=== PATIENT | male | born 1955 | race Caucasian/White ===

== ENCOUNTER 2017-09-02 14:59 | Observation (INO) ==
[2017-09-02] MEDS ORDERED: Orphenadrine 60 MG/2 ML VIAL IVP ONE (16:06)
[2017-09-02] MEDS ORDERED: Ondansetron 4 MG/2 ML VIAL IVP ONE (16:06)
[2017-09-02] MEDS ORDERED: methylPREDNISolone 125 MG/2 ML VIAL IVP ONE (16:06)
[2017-09-02] MEDS ORDERED: 0.9 % Sodium Chloride 1,000 ML IVC ONE (16:06)
--- NOTE | 2017-09-02 16:06 | Emergency Department Note ---
Disposition Clinical Impression: Unable to ambulate Lumbar strain Qualifiers: Encounter type: subsequent encounter Qualified Code(s): S39.012D - Strain of muscle, fascia and tendon of lower back, subsequent encounter Disposition: Admitted As Inpatient Condition: Good Back Pain HPI - General Chief Complaint: ED Back Pain/Injury Stated Complaint: Low back pain Time Seen by Provider: 09/02/17 15:02 Source: EMS Mode of arrival: EMS Limitations: physical limitation Nursing Notes Reviewed: Yes Vital Signs Reviewed: Yes - History of Present Illness HPI Narrative: 62-year-old male history of cerebral palsy, ambulation with crutches who presents to the ER due to back pain. Reports that a few days ago he was standing up and developed pain in his right lower back. He did not fall or strike anything. He was seen here on the where he had imaging performed and was sent home with narcotics. He has also been using topical lidocaine. Reports persistent pain. States that the pain medication makes him sick. Home health was concerned because he has not been eating and drinking as well. He denies any radicular symptoms. No bowel or bladder incontinence. No fevers. No other complaints. Pt Subjective Complaint: back pain Onset (ago): day(s) Duration: constant Location: lumbar spine Pain Severity: moderate Radiation: none Improves with: none Worsens with: none Associated symptoms: Denies: numbness, weakness, incontinence of bowel/bladder - Related Data Previous Rx's Medication Instructions Recorded HYDROcodone/Acet 5/325 mg [[place] 1 tab PO Q6H PRN 4 Days #12 tab 08/31/17 5-325 mg] Lidocaine Patch [Lidoderm 5% patch] 1 each TP BID #1 pack 08/31/17 Allergies Allergy/AdvReac Type Severity Reaction Status Date / Time Penicillins [PCN] Allergy Rash Verified 09/02/17 15:23 All systems ED: reviewed and negative except as stated. Constitutional: Denies: fever Gastrointestinal: Reports: nausea. Denies: abdominal pain Musculoskeletal: Reports: back pain Neurological: Denies: weakness, numbness, paresthesias Past Medical History - Past Medical History Attestation: Yes The following information was validated with the patient. Source: patient Medical history: Reports: COPD, GERD, glaucoma, hyperlipidemia, hypertension Surgical history: Reports: orthopedic, other Psychiatric history: Reports: no psych history - Social History Smoking Status: Former smoker Smokeless Tobacco Status: No Alcohol use: Reports: none Drug use: Reports: none Physical Exam - General Limitations: physical limitation General appearance: alert, in no apparent distress - Head Head exam: atraumatic, normocephalic - Eye Eye exam: Present: normal appearance - ENT ENT exam: normal exam - Neck Neck exam: Present: normal inspection - Chest Chest inspection: Present: normal inspection, symmetric chest wall rise - Respiratory Respiratory exam: Present: normal lung sounds bilaterally - Cardiovascular Cardiovascular exam: Present: regular rate, normal rhythm, normal heart sounds - Abdominal Exam Abdominal exam: Present: soft, Non-Tender. Absent: tenderness - Extremities Exam Extremities exam: Present: normal inspection, full ROM - Expanded Upper Extremity Exam Shoulder exam: Present: normal inspection, full ROM Arm exam: Present: normal inspection, full ROM Elbow exam: Present: normal inspection, full ROM Forearm/Wrist exam: Present: normal inspection, full ROM Hand exam: Present: normal inspection, full ROM - Expanded Lower Extremity Exam Hip/Pelvis exam: Present: normal inspection Upper leg exam: Present: normal inspection Knee exam: Present: normal inspection Lower leg exam: Present: normal inspection Ankle exam: Present: normal inspection Foot/toe exam: Present: normal inspection - Back Exam Back exam: Present: other (Right lumbar paraspinal tenderness) - Neurological Exam Neurological exam: Present: alert, other (GCS 15. Weakness in the lower extremity is which is chronic. Sensation to light touch intact.) - Skin Skin exam: Present: warm, dry Course Course Narrative: Patient seen and examined. Vital signs reviewed. No focal deficits. Imaging from prior evaluation reviewed. Plan to treat symptomatically here. IV, IV fluids, Solu-Medrol and Norflex. - Reevaluation(s) Reevaluation #1: Discussed findings with the patient and caregiver. Agreeable with admission. Vital Signs Pulse Rate 91 09/02/17 15:00 Respiratory Rate 20 09/02/17 15:00 Blood Pressure 151/84 09/02/17 15:00 O2 Sat by Pulse Oximetry 99 09/02/17 15:00 Temperature 98.4 F 09/02/17 15:01 Pulse Rate 99 09/02/17 17:31 Respiratory Rate 96 09/02/17 18:20 Blood Pressure 138/90 09/02/17 18:20 O2 Sat by Pulse Oximetry 96 09/02/17 17:31 Oxygen Delivery Oxygen Delivery Room Air Back Pain/Injury - MDM Narrative Medical decision making narrative: 62-year-old male with lumbar strain previously evaluated 2 days ago. Presents with continued symptoms and caregivers unable to care for him at home. No neurologic deficits outside of his baseline on exam. Pain is paraspinal. Labs reviewed and unremarkable. They are unable to care for him at home plan for admission for pain control as well as PTOT with potential short-term rehabilitation. - Medical Records Medical records reviewed: Yes I reviewed the patient's medical records. - Lab Data Lab results reviewed: Yes I reviewed the patient's lab results. Result diagrams: 09/02/17 17:11 09/02/17 17:11 Lab Results 09/02/17 09/02/17 09/02/17 Range/Units 17:11 17:11 17:11 WBC 8.5 (4.3-11.1) K/mcL RBC 4.60 (4.19-5.50) M/mcL Hgb 13.1 (12.9-16.9) g/dL Hct 40.4 (37.5-50.1) % MCV 87.8 (83.0-100.0) fL MCH 28.5 (28.0-33.3) pg MCHC 32.4 (31.6-35.5) g/dL RDW 13.7 (11.5-14.5) % Plt Count 247 (140-400) K/mcL MPV 10.2 (9.4-12.4) fL Immature Gran % 0.2 (0-4) % Seg Neutrophils % 64.2 % Lymphocytes % 24.5 % Monocytes % 8.0 % Eosinophils % 2.5 % Basophils % 0.6 % Neutrophils # 5.4 (1.6-8.9) K/mcL Lymphocytes # 2.1 (0.6-4.6) K/mcL Monocytes # 0.7 (0.0-1.3) K/mcL Eosinophils # 0.2 (0.0-0.6) K/mcL Basophils # 0.1 (0.0-0.2) K/mcL Sodium 141 (136-145) mEq/L Potassium 3.9 (3.5-5.1) mEq/L Chloride 112 H (98-107) mEq/L Carbon Dioxide 23 (23-29) mEq/L BUN 21 (8-23) mg/dL Creatinine 0.83 (0.70-1.30) mg/dL Est GFR ( Amer) > 60 (> 60) Est GFR (Non-Af Amer) > 60 (> 60) BUN/Creatinine Ratio 25 (6-26) Glucose 112 H (70-105) mg/dL Calculated Osmolality 296 (280-300) Calcium 9.3 (8.6-10.3) mg/dL Total Bilirubin 0.5 (0.3-1.0) mg/dL Direct Bilirubin 0.1 (0.0-0.2) mg/dL Indirect Bilirubin 0.4 (0.0-1.2) mg/dL AST 18 (13-39) Units/L ALT 16 (7-52) Units/L Alkaline Phosphatase 57 (34-104) Units/L Serum Total Protein 7.0 (6.4-8.9) g/dL Albumin 4.1 (3.5-5.7) g/dL Globulin 2.9 (2.4-3.5) g/dL Albumin/Globulin Ratio 1.4 (1.1-2.2) Lipase 13 (11-82) Units/L Urine Color (Yellow) Urine Clarity (Clear) Urine pH (5.0-8.0) pH Units Ur Specific [place] (1.010-1.025) Urine Protein (Neg-Trace) mg/dL Urine Glucose (UA) (Normal) mg/dL Urine Ketones (Negative) mg/dL Urine Blood (Negative) Urine Nitrite (Negative) Urine Bilirubin (Negative) Urine Urobilinogen (Normal) mg/dL Ur Leukocyte Esterase (Negative) Urine Microscopic RBC (0-3) per hpf Urine Microscopic WBC (0-3) per hpf Ur Squamous Epith Cells (None-Few) per lpf Urine Bacteria (None-Few) per hpf Hyaline Casts (None-Few) per lpf Ur Culture Indicated? (NO) 09/02/17 Range/Units 18:20 WBC (4.3-11.1) K/mcL RBC (4.19-5.50) M/mcL Hgb (12.9-16.9) g/dL Hct (37.5-50.1) % MCV (83.0-100.0) fL MCH (28.0-33.3) pg MCHC (31.6-35.5) g/dL RDW (11.5-14.5) % Plt Count (140-400) K/mcL MPV (9.4-12.4) fL Immature Gran % (0-4) % Seg Neutrophils % % Lymphocytes % % Monocytes % % Eosinophils % % Basophils % % Neutrophils # (1.6-8.9) K/mcL Lymphocytes # (0.6-4.6) K/mcL Monocytes # (0.0-1.3) K/mcL Eosinophils # (0.0-0.6) K/mcL Basophils # (0.0-0.2) K/mcL Sodium (136-145) mEq/L Potassium (3.5-5.1) mEq/L Chloride (98-107) mEq/L Carbon Dioxide (23-29) mEq/L BUN (8-23) mg/dL Creatinine (0.70-1.30) mg/dL Est GFR ( Amer) (> 60) Est GFR (Non-Af Amer) (> 60) BUN/Creatinine Ratio (6-26) Glucose (70-105) mg/dL Calculated Osmolality (280-300) Calcium (8.6-10.3) mg/dL Total Bilirubin (0.3-1.0) mg/dL Direct Bilirubin (0.0-0.2) mg/dL Indirect Bilirubin (0.0-1.2) mg/dL AST (13-39) Units/L ALT (7-52) Units/L Alkaline Phosphatase (34-104) Units/L Serum Total Protein (6.4-8.9) g/dL Albumin (3.5-5.7) g/dL Globulin (2.4-3.5) g/dL Albumin/Globulin Ratio (1.1-2.2) Lipase (11-82) Units/L Urine Color Yellow (Yellow) Urine Clarity Cloudy A (Clear) Urine pH 7.0 (5.0-8.0) pH Units Ur Specific [place] 1.023 (1.010-1.025) Urine Protein Trace (Neg-Trace) mg/dL Urine Glucose (UA) Normal (Normal) mg/dL Urine Ketones Negative (Negative) mg/dL Urine Blood Negative (Negative) Urine Nitrite Negative (Negative) Urine Bilirubin Negative (Negative) Urine Urobilinogen Normal (Normal) mg/dL Ur Leukocyte Esterase Small H (Negative) Urine Microscopic RBC 0-3 (0-3) per hpf Urine Microscopic WBC 5-15 H (0-3) per hpf Ur Squamous Epith Cells Many H (None-Few) per lpf Urine Bacteria None Seen (None-Few) per hpf Hyaline Casts None Seen (None-Few) per lpf Ur Culture Indicated? NO. A (NO) Vasquez - Vasquez Situation: Demographics, MOA Background: Presenting Complaint, Relevant PMH, Meds, & Allergies Assessment: Course and respsone to treatment, Exam Concerns, Patient/Family Expectation, Pertinant Lab Results Recommendation: Barrier(s) to disposition, Recommendation based on pending studies, treatments, or consults SDewayne Report Given to: Dr. Maurisio Ovalle Repor Time: 18:34 Attestation Statement - Attestation Attestation: Patient was seen with resident physician. I reviewed the history, physical, assessment and plan, and agree with the findings. I also personally evaluated this patient and had [id number] time with this patient. 62-year-old male presents to the emergency Department chief complaint of right low back pain. Patient is a history of cerebral palsy. He has muscle spasms in various areas. She said this is typical for muscle spasm but the pain has gotten so bad he can no longer care for himself. Patient was seen in the ED several days ago, and had imaging. He was sent home with narcotics and lidocaine patch she said this is been ineffective. Also says he has had dark urine. Home healthcare says he has not been eating or drinking well. And does acknowledge a can no longer care for himself at all. Review of systems as above remainder negative. Physical exam vital signs are stable. Heart regular rhythm and rate. Lungs clear. Abdomen obese nontender. Back difficult to examine secondary to patient habitus I could not really reproduce the patient's symptoms or feel any specific muscle spasms. Extremities unremarkable neurologically alert and oriented. Skin no rashes. Psych normal. We will check a urine as well as try muscle relaxants steroid to see if we can improve the spasms. If were unable to improve to the point that he can care for himself a little bit he will end up getting admitted to the hospitalist service for PT OT and further evaluation and treatment. Patient did not improve sufficiently for discharge to home. We spoke with his home health workforce investment act career manager as well and he said his been getting progressively worse and really unable to care for himself. Spoke with the hospitalist service and arrange for admission. Agree with the resident physician assessment and plan.
[2017-09-02 17:19] LABS: Basophils # 0.1 K/mcL (0.0-0.2); Basophils % 0.6 %; Eosinophils # 0.2 K/mcL (0.0-0.6); Eosinophils % 2.5 %; Hematocrit 40.4 % (37.5-50.1); Hemoglobin 13.1 g/dL (12.9-16.9); Immature Granulocytes % 0.2 % (0-4); Lymphocytes # 2.1 K/mcL (0.6-4.6); Lymphocytes % 24.5 %; Mean Corpuscular HGB Conc 32.4 g/dL (31.6-35.5); Mean Corpuscular Hemoglobin 28.5 pg (28.0-33.3); Mean Corpuscular Volume 87.8 fL (83.0-100.0); Mean Platelet Volume 10.2 fL (9.4-12.4); Monocytes # 0.7 K/mcL (0.0-1.3); Neutrophils # 5.4 K/mcL (1.6-8.9); Platelet Count 247 K/mcL (140-400); Red Cell Distribution Width 13.7 % (11.5-14.5); Segmented Neutrophils % 64.2 %
[2017-09-02 17:40] LABS: Alanine Aminotransferase 16 Units/L (7-52); Albumin 4.1 g/dL (3.5-5.7); Albumin/Globulin Ratio 1.4 (1.1-2.2); Alkaline Phosphatase 57 Units/L (34-104); Aspartate Amino Transferase 18 Units/L (13-39); BUN/Creatinine Ratio 25 (6-26); Bilirubin,Direct 0.1 mg/dL (0.0-0.2); Bilirubin,Indirect 0.4 mg/dL (0.0-1.2); Bilirubin,Total 0.5 mg/dL (0.3-1.0); Blood Urea Nitrogen 21 mg/dL (8-23); Calcium 9.3 mg/dL (8.6-10.3); Carbon Dioxide 23 mEq/L (23-29); Chloride 112 mEq/L (98-107); Globulin 2.9 g/dL (2.4-3.5); Glucose 112 mg/dL (70-105); Osmolality,Calculated 296 (280-300); Potassium 3.9 mEq/L (3.5-5.1); Sodium 141 mEq/L (136-145); eGFR For Non-African Americans > 60 (> 60)
[2017-09-02] MEDS ORDERED: GI Cocktail 40 ML EACH PO ONE (18:00)
[2017-09-02 18:36] LABS: Bilirubin,Urine Negative (Negative); Blood,Urine Negative (Negative); Clarity,Urine Cloudy (Clear); Color,Urine Yellow (Yellow); Glucose,Urine (UA) Normal (Normal); Ketones,Urine Negative (Negative); Leukocyte Esterase,Urine Small (Negative); Nitrite,Urine Negative (Negative); Protein,Urine Trace mg/dL (Neg-Trace); Specific Gravity,Urine 1.023 (1.010-1.025); Urobilinogen,Urine Normal (Normal)
[2017-09-02 18:38] LABS: Bacteria,Urine None Seen per hpf (None-Few); Hyaline Casts,Urine None Seen per lpf (None-Few); RBC,Urine 0-3 per hpf (0-3); Squamous Epithelial Cell,Urine Many per lpf (None-Few)
--- NOTE | 2017-09-02 19:55 | Internal Med History&Physical ---
<Trae Crawford - Last Filed: 09/02/17 21:53> Date of Encounter: 09/02/17 Time of Encounter: 19:49 Internal Medicine - H&P: HPI Chief complaint: Back pain Admitted From: Home History of present illness: Mr. Ca is a 62 year old male with a past medical history of cerebral palsy, hypertension, GERD, glaucoma, COPD, MINA, and morbid obesity who presents from home secondary to worsening right sided back pain. Patient's home health caregiver reports he usually ambulates with crutches or a walker and developed pain in his right lower back after standing up a 4 days ago while trying to go to the bathroom. Patient denies fall or history of trauma. Patient was evaluated in the ED 2 days ago for same symptoms. CT revealed no acute bony abnormality and patient was discharged with prescription for [place] and lidocaine patch. Patient reports worsening symptoms despite analgesics. He also reports associated urinary frequency and urinary urgency which he attributes to home Lasix use. Patient denies fever, chills, chest pain, shortness of breath, abdominal pain, nausea, vomiting, diarrhea, constipation, leg edema, or skin ulcers. 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 Past Med Surg Social Fam HX - Past Medical History Medical history: COPD, GERD, glaucoma, hyperlipidemia, hypertension Additional medical history: Cerebral palsy, left eye blindness Psychiatric history: no psych history - Past Surgical History Surgical History: orthopedic, other (Hamstring release to correct scissoring gait, basal cell carcinoma removed from right ear) Additional surgical history: eye - Social History Smoking Status: Former smoker Smokeless Tobacco Status: No Alcohol use: none Drug use: none Occupational status: employed ([employer]) Current living situation: Home (Has two roommates), Other (Home health) Activity Level: Uses cane/walker (Crutches) Recent Out of Country Travel Within the Last 8 Weeks: No Exposure or Possible Exposure to Illness During Travel: No - Family History Mother Hx Family Cardiac Disorders: Yes (CHF) Father Hx Family Cancer: Yes (Lung) Internal Medicine - H&P: Meds HYDROcodone/Acet 5/325 mg [[place] 5-325 mg] 1 tab PO Q6H PRN 4 Days #12 tab 08/31 [Rx] Lidocaine Patch [Lidoderm 5% patch] 1 each TP BID #1 pack 08/31/17 [Rx] 3 Allergy/AdvReac Type Severity Reaction Status Date / Time Penicillins [PCN] Allergy Rash Verified 09/02/17 15:23 All Systems PM: A 10-system review of systems was performed and is negative for pertinent findings except as documented above in the HPI. - Constitutional Constitutional: fatigue, lethargy, weakness, no anorexia, no chills, no fever(s) , no falls, no weight gain, no weight loss - EENT Eyes: blurry vision (Chronic), loss of vision (Left eye, chronic), no diplopia Nose, mouth and throat: no sinus pain, no sore throat - Cardiovascular Cardiovascular ROS IM: no chest pain, no dyspnea, no edema, no lightheadedness, no palpitations, no syncope - Respiratory Respiratory: no cough, no dyspnea - Gastrointestinal Gastrointestinal: heartburn, no abdominal pain, no constipation, no diarrhea, no fecal incontinence, no nausea, no vomiting - Genitourinary Genitourinary ROS male: flank pain, urinary frequency, urinary urgency - Musculoskeletal Musculoskeletal ROS IM: back pain, myalgias, no neck pain, no numbness, no tingling - Integumentary Integumentary IM: no erythema, no rash, no skin ulcer - Neurological Neurological ROS: abnormal gait, weakness, no confusion, no numbness, no tingling - Psychiatric Psychiatric: no anxiety, no depression - Endocrine Endocrine IM: fatigue, no polydipsia, no polyphagia, no polyuria - Hematologic/Lymphatic Hematologic/Lymphatic: no easy bleeding, no easy bruising - Constitutional Vitals: Temp Pulse Resp BP Pulse Ox 98.4 F 99 96 138/90 96 09/02/17 15:01 09/02/17 17:31 09/02/17 18:20 09/02/17 18:20 09/02/17 17:31 General appearance: Present: cooperative, mild distress, morbidly obese, pleasant, answers questions appropriately - Head Head exam: Present: atraumatic, normocephalic - Eye Eye exam: Present: EOMI (Left eye glaucoma, complete loss of vision, chronic). Absent: normal appearance - ENT ENT exam: Present: mucous membranes dry, normal oropharynx - Neck Neck exam general surgery: Present: supple, trachea midline. Absent: lymphadenopathy - Respiratory Respiratory exam: Present: wheezes (Expiratory). Absent: accessory muscle use, rales, respiratory distress, rhonchi - Cardiovascular Cardiovascular exam: Present: RRR, +S1, +S2. Absent: diastolic murmur, gallop, rubs, systolic murmur - GI/Abdominal GI/Abdominal exam: Present: normal bowel sounds, soft, no peritoneal signs. Absent: distended (Obese), guarding, tenderness - Extremities Exam Extremities exam: Present: normal capillary refill, normal inspection, warm, radial pulses palpable and symmetrical. Absent: calf tenderness, cyanotic, pedal edema, tenderness - Back Exam Back exam: Present: CVA tenderness (R), normal inspection, paraspinal tenderness (Mild L-spine), tenderness. Absent: vertebral tenderness - Neurological Exam Neurological exam: Present: alert, CN II-XII intact, oriented X3, no focal deficits. Absent: pronater drift, facial droop, speech deficit - Psychiatric Psychiatric exam: Present: normal affect, normal mood - Skin Skin exam: Present: dry, intact, normal color, warm Internal Med - H&P Results - Labs CBC & Chem 7: 09/02/17 17:11 09/02/17 17:11 - Pulse Oximetry Interpretation Digit-Finger O2 Sat by Pulse Oximetry: 96 (On room air) - Impressions CT/CT abd pelvis w iv no oral IMPRESSION: 1. Mild cholelithiasis but no acute cholecystitis. No acute abnormalities in the abdomen or pelvis. Normal appendix and gastrointestinal tract. 2. Bones/Soft Tissues: No acute abnormality. D/ / 08/31/2017 19:15:01 Em[facility]an [facility] / [facility] Interpreting Provider: Emely Beltran MD - Assessment and plan (1) UTI (urinary tract infection) Current Visit: Yes Status: Acute Assessment and plan: Patient with right sided flank pain, urinary frequency, urinary urgency UA reveals cloudy appearance, small leukocyte esterase, and 5-15 WBCs Start Rocephin 1 g IV (day 1) Continue monitoring Qualifiers: Urinary tract infection type: acute cystitis Hematuria presence: without hematuria Qualified Code(s): N30.00 - Acute cystitis without hematuria (2) Lumbar strain Current Visit: Yes Status: Chronic Assessment and plan: Patient with acute lumbar strain for the past 4 days, no saddle anesthesia, no urine or fecal incontinence, no numbness or tingling CT on 08/31/17 revealed no acute bony abnormality Continue analgesics and muscle relaxants Recommend lifestyle modification/ weight loss PT/OT consulted Qualifiers: Encounter type: subsequent encounter Qualified Code(s): S39.012D - Strain of muscle, fascia and tendon of lower back, subsequent encounter (3) Ambulatory dysfunction Current Visit: Yes Status: Chronic Assessment and plan: Patient usually walks with crutches. He has been unable to walk secondary to low back pain. Continue fall precautions Patient has home health care, PT/OT consulted (4) Cerebral palsy Current Visit: No Status: Chronic Assessment and plan: Continue monitoring Qualifiers: Cerebral palsy type: unspecified type Qualified Code(s): G80.9 - Cerebral palsy, unspecified (5) GERD (gastroesophageal reflux disease) Current Visit: No Status: Chronic Assessment and plan: Continue PPI Qualifiers: Esophagitis presence: without esophagitis Qualified Code(s): K21.9 - Gastro -esophageal reflux disease without esophagitis (6) COPD (chronic obstructive pulmonary disease) Current Visit: No Status: Chronic Assessment and plan: Patient with expiratory wheezes on exam Patient was given Solumedrol 125mg IV in the ED CXR pending Continue Duonebs Qualifiers: COPD type: unspecified COPD Qualified Code(s): J44.9 - Chronic obstructive pulmonary disease, unspecified (7) Morbid obesity with BMI of 40.0-44.9, adult Current Visit: Yes Status: Chronic Assessment and plan: Lifestyle modification (8) DVT prophylaxis Current Visit: Yes Status: Acute Assessment and plan: Heparin subcutaneous TID (9) MINA on CPAP Current Visit: Yes Status: Acute Assessment and plan: Continue CPAP at night - Time Spent With Patient Total time spent is greater than 50% in coordination of care (as documented) at patient's floor/unit and/or counseling patient: <Rogelio Clarke P - Last Filed: 09/02/17 22:57> Date of Encounter: 09/02/17 Internal Medicine - H&P: HPI History of present illness: Mr. Ca is a 62 year old male All Systems PM: A 10-system review of systems was performed and is negative for pertinent findings except as documented above in the HPI. - Constitutional Vitals: Temp Pulse Resp BP Pulse Ox 98.5 F 92 20 138/81 95 09/02/17 20:14 09/02/17 20:14 09/02/17 20:14 09/02/17 20:14 09/02/17 20:14 Internal Med - H&P Results - Labs CBC & Chem 7: 09/02/17 17:11 09/02/17 17:11 - Attending Attestation I have seen the patient and performed my own history and physical examination. I have discussed the case with the admitting resident physician, and I agree with is assessment and plan of care as documented in his H&P. Briefly, patient presented to ED with acute on chronic lower back pain. He came to ED for same issue few days ago. In the ED, UA was questionable for UTI. Labwork unremarkable. He does report some dysuria. Will admit for observation. Will start rocephin IV for UTI. Will use norco and baclofen for lumbar strain. Will consult PT/OT in AM. He has some wheezing on examination; will obtain CXR and start duonebs given history of COPD. Repeat labwork in AM. - Assessment and plan (1) Lumbar strain Current Visit: Yes Status: Chronic Qualifiers: Encounter type: subsequent encounter Qualified Code(s): S39.012D - Strain of muscle, fascia and tendon of lower back, subsequent encounter (2) Ambulatory dysfunction Current Visit: Yes Status: Chronic (3) Cerebral palsy Current Visit: No Status: Chronic Qualifiers: Cerebral palsy type: unspecified type Qualified Code(s): G80.9 - Cerebral palsy, unspecified (4) DVT prophylaxis Current Visit: Yes Status: Acute (5) GERD (gastroesophageal reflux disease) Current Visit: No Status: Chronic Qualifiers: Esophagitis presence: without esophagitis Qualified Code(s): K21.9 - Gastro -esophageal reflux disease without esophagitis (6) Morbid obesity with BMI of 40.0-44.9, adult Current Visit: Yes Status: Chronic (7) UTI (urinary tract infection) Current Visit: Yes Status: Acute Qualifiers: Urinary tract infection type: acute cystitis Hematuria presence: without hematuria Qualified Code(s): N30.00 - Acute cystitis without hematuria (8) COPD (chronic obstructive pulmonary disease) Current Visit: No Status: Chronic Qualifiers: COPD type: unspecified COPD Qualified Code(s): J44.9 - Chronic obstructive pulmonary disease, unspecified (9) MINA on CPAP Current Visit: Yes Status: Acute - Time Spent With Patient Total time spent is greater than 50% in coordination of care (as documented) at patient's floor/unit and/or counseling patient:
[2017-09-02] MEDS ORDERED: traMADol 50 MG TABLET PO PRN (21:07)
[2017-09-02] MEDS ORDERED: Ondansetron 4 MG/2 ML VIAL IVP PRN (21:07)
[2017-09-02] MEDS ORDERED: Acetaminophen 325 MG TABLET PO PRN (21:07)
[2017-09-02] MEDS ORDERED: Naloxone 0.4 MG/ML INJ IVP PRN (21:07)
[2017-09-02] MEDS: *HR* HYDROcodone/Acet 5/325 mg TABLET PO PRN (21:46)
[2017-09-02] MEDS: *HR* Heparin 5,000 UNIT/ML VIAL SQ SCH (21:47)
[2017-09-02] MEDS: Baclofen 10 MG TABLET PO SCH (21:48)
[2017-09-02] MEDS ORDERED: cefTRIAXone 1,000 MG in Water for inj. (sterile) 20 ML 10 ML IVP SCH (22:00)
[2017-09-02] MEDS: Ipratropium/Albuterol Neb 3 ML IH SCH (22:57)
[2017-09-03 03:34] LABS: BUN/Creatinine Ratio 23 (6-26); Blood Urea Nitrogen 17 mg/dL (8-23); Calcium 8.9 mg/dL (8.6-10.3); Carbon Dioxide 20 mEq/L (23-29); Chloride 109 mEq/L (98-107); Glucose 164 mg/dL (70-105); Osmolality,Calculated 293 (280-300); Potassium 3.5 mEq/L (3.5-5.1); Sodium 139 mEq/L (136-145); eGFR For Non-African Americans > 60 (> 60)
[2017-09-03] MEDS: Ipratropium/Albuterol Neb 3 ML IH SCH ×4 (03:44→22:15)
[2017-09-03] MEDS: *HR* Heparin 5,000 UNIT/ML VIAL SQ SCH ×3 (05:10→21:59)
[2017-09-03] MEDS: Pantoprazole 40 MG VIAL IVP SCH (05:10)
[2017-09-03] MEDS: Baclofen 10 MG TABLET PO SCH ×3 (07:47→21:59)
--- NOTE | 2017-09-03 09:16 | Internal Med Progress Note ---
Date of Encounter: 09/03/17 Time of Encounter: 08:30 - Assessment and plan (1) Lumbar strain Current Visit: Yes Status: Acute Assessment and plan: Pt has c/o lumbar back pain since Monday -worsening in intensity -no saddle anesthesia -no bowel or bladder incon't -no numbness/tingling in the groin area -CT 08/31 showed no acute bony abnormality Plan: -MRI of the thoracic/lumbar region -Continue acetominophen 650mg PO q6hr prn pain and Baclofen 5mg PO TID -recommend weight loss -PTOT to see Qualifiers: Encounter type: subsequent encounter Qualified Code(s): S39.012D - Strain of muscle, fascia and tendon of lower back, subsequent encounter (2) Ambulatory dysfunction Current Visit: Yes Status: Chronic Assessment and plan: Pt has a hx of cerebral palsy -ambulates with crutches -unable to ambulate currently because of LBP Plan: -fall precautions -PTOT -weight loss -pt has home health and [facility] (3) Cerebral palsy Current Visit: No Status: Chronic Assessment and plan: Chronic -outpt monitoring -continue baclofen Qualifiers: Cerebral palsy type: unspecified type Qualified Code(s): G80.9 - Cerebral palsy, unspecified (4) DVT prophylaxis Current Visit: Yes Status: Acute Assessment and plan: Heparin subcutaneous 5000U (5) GERD (gastroesophageal reflux disease) Current Visit: No Status: Chronic Assessment and plan: Continue PPI -recommend lifestyle changes Qualifiers: Esophagitis presence: without esophagitis Qualified Code(s): K21.9 - Gastro -esophageal reflux disease without esophagitis (6) Morbid obesity with BMI of 40.0-44.9, adult Current Visit: Yes Status: Chronic Assessment and plan: Lifestyle modification -BMI 42.3 -lose weight (7) COPD (chronic obstructive pulmonary disease) Current Visit: No Status: Chronic Qualifiers: COPD type: unspecified COPD Qualified Code(s): J44.9 - Chronic obstructive pulmonary disease, unspecified (8) MINA on CPAP Current Visit: No Status: Chronic Assessment and plan: Continue CPAP at night - Time Spent With Patient Total time spent is greater than 50% in coordination of care (as documented) at patient's floor/unit and/or counseling patient: less than 15 minutes - Subjective Interval history: Mr. Ca is a 62yo male pt who was admitted yesterday for worsening back pain. It was located in the right side of his back. He states it was a sharp pain w/o radiation, nothing made it better or worse. He was here last week for the same problem, although he came back because it has been increasing in severity. CT scan in ED last week showed no acute bony abnomrlaities, and the pt was sent home with norco and lidocaine patches. He reports urinary frequency and urgency but states that it is due to his home lasix -he denies hematuria, dysuria -states he has to "wait a while" for the stream to start -denies saddle anesthesia Pt denies fever, chills, chest pain, SOB, abd pain, N/V/D, constipation, lightheadedness, dizziness -he has a H cerebral palsy, hypertension, GERD, glaucoma, COPD, MINA, and morbid. Pt reports he is still having some back pain and the plan at this time is to do an MRI of the spine. Fluids - none Electrolytes - all within normal limits Nutrition - tolerating cardiac diet GI prophylaxis - on protonix 40mg IVP DVT prophyalxis - 5000U SQ heparin - Constitutional Vitals: Temp Pulse Resp BP Pulse Ox 98.6 F 114 16 139/79 94 09/03/17 07:47 09/03/17 07:47 09/03/17 07:47 09/03/17 07:47 09/03/17 07:47 General appearance: Present: cooperative, morbidly obese, pleasant, answers questions appropriately - Respiratory Respiratory exam: Present: CTAB - Cardiovascular Cardiovascular exam: Present: RRR, +S1, +S2 - GI/Abdominal GI/Abdominal exam: Present: soft, no peritoneal signs - Psychiatric Psychiatric exam: Present: normal mood - Skin Skin exam: Present: intact Internal Medicine: Result - Labs CBC & Chem 7: 09/02/17 17:11 09/03/17 02:54 Labs: BMP 09/03/17 02:54 Sodium 139 Potassium 3.5 Chloride 109 H Carbon Dioxide 20 L BUN 17 Creatinine 0.75 Glucose 164 H Calcium 8.9 - Impressions Impressions Chest X-Ray 09/02/17 21:55 IMPRESSION: No acute pulmonary finding. Borderline cardiac enlargement. Dilated loops of bowel within the upper abdomen of uncertain significance. Consider follow-up abdominal imaging if patient has any abdominal symptoms. D/ / Ede Chambers MD / Ede Chambers MD Interpreting Provider: Ede Chamebrs MD Consult Discharge Plan - Plan Referrals: Reg sen MD [Primary Care Provider] -
--- NOTE | 2017-09-03 10:20 | Event Note ---
Date of Encounter: 09/03/17 Time of Encounter: 10:15 Patient was seen and examined. I agree with the progress note as written by the resident physician. Patient presents with recurrent right-sided back pain. He has had multiple presentations to the ED for this. Was discharged on a lidocaine patch and [place] 2 days ago. Continues to have pain. Patient had a CT abdomen and pelvis a couple days ago that showed mild cholelithiasis. No evidence for acute cholecystitis. He was started on IV antibiotics for suspected UTI. GEN: NAD CVS: RRR. S1, S2, No m/r/g RESP: CTAB ABD: Soft, NT, ND, +BS EXT: No edema. 2+ DP. No rashes NEURO: Nonfocal We will check an MRI thoracic and lumbar spine. PTOT Pain control Baclofen Resume home meds I doubt he has a UTI. We will stop IV antibiotics. DVT prophylaxis
[2017-09-03] MEDS: *HR* HYDROcodone/Acet 5/325 mg TABLET PO PRN ×2 (15:57→21:59)
[2017-09-03] MEDS ORDERED: traZODone 50 MG TABLET PO SCH (23:45)
[2017-09-04] MEDS ORDERED: Albuterol 2.5 MG/3 ML NEBULIZER IH PRN (00:02)
[2017-09-04] MEDS: Furosemide 20 MG TABLET PO SCH ×2 (00:22→09:09)
[2017-09-04] MEDS: Famotidine 20 MG TABLET PO SCH ×2 (00:22→06:38)
[2017-09-04] MEDS: Lisinopril 20 MG TABLET PO SCH ×2 (00:42→09:08)
[2017-09-04] MEDS: Ipratropium/Albuterol Neb 3 ML IH SCH ×2 (03:44→10:49)
[2017-09-04 04:45] LABS: Basophils % 0.4 %; Eosinophils # 0.1 K/mcL (0.0-0.6); Eosinophils % 1.1 %; Hematocrit 35.7 % (37.5-50.1); Hemoglobin 11.7 g/dL (12.9-16.9); Immature Granulocytes % 0.1 % (0-4); Lymphocytes # 2.1 K/mcL (0.6-4.6); Lymphocytes % 29.7 %; Mean Corpuscular HGB Conc 32.8 g/dL (31.6-35.5); Mean Corpuscular Hemoglobin 28.8 pg (28.0-33.3); Mean Corpuscular Volume 87.9 fL (83.0-100.0); Mean Platelet Volume 10.6 fL (9.4-12.4); Monocytes # 0.7 K/mcL (0.0-1.3); Monocytes % 9.1 %; Neutrophils # 4.3 K/mcL (1.6-8.9); Platelet Count 231 K/mcL (140-400); Red Blood Count 4.06 M/mcL (4.19-5.50); Red Cell Distribution Width 13.7 % (11.5-14.5); Segmented Neutrophils % 59.6 %
[2017-09-04 04:54] LABS: INR 1.1; Prothrombin Time 12.8 Seconds (9.4-12.1)
[2017-09-04 05:05] LABS: BUN/Creatinine Ratio 24 (6-26); Blood Urea Nitrogen 21 mg/dL (8-23); Calcium 8.7 mg/dL (8.6-10.3); Carbon Dioxide 27 mEq/L (23-29); Chloride 107 mEq/L (98-107); Glucose 112 mg/dL (70-105); Osmolality,Calculated 294 (280-300); Potassium 3.9 mEq/L (3.5-5.1); Sodium 140 mEq/L (136-145); eGFR For Non-African Americans > 60 (> 60)
[2017-09-04] MEDS: *HR* Heparin 5,000 UNIT/ML VIAL SQ SCH (06:38)
[2017-09-04] MEDS: Pantoprazole 40 MG VIAL IVP SCH (06:38)
[2017-09-04] MEDS ORDERED: Aspirin Enteric Coated 81 MG Tablet PO SCH (09:00)
[2017-09-04] MEDS ORDERED: amLODIPine 5 MG TABLET PO SCH (09:00)
[2017-09-04] MEDS ORDERED: Multivit/Ca/Min/Fe/FA 1 TAB TABLET PO SCH (09:00)
[2017-09-04] MEDS: Baclofen 10 MG TABLET PO SCH (09:09)
--- NOTE | 2017-09-04 11:12 | Physician Discharge Referral ---
Home Health/Hosp Referral Info Transfer to: Home Health - Diagnosis (1) Foraminal stenosis due to intervertebral disc disease Status: Acute (2) Back pain Status: Acute (3) Cerebral palsy Status: Chronic (4) COPD (chronic obstructive pulmonary disease) Status: Chronic (5) MINA on CPAP Status: Chronic - Respiratory Orders Smoking Cessation: Smoking cessation has been advised. For more information, call the [place] Tobacco Quit Line at 2-821-HXVS-NOW. - Activity Activity Orders: Ambulate (with crutches, per PT) - Services Needed Following services are medically necessary services: Home Health Aide, Physical Therapy, Occupational Therapy - Transfer Medications Prescriptions: HYDROcodone/Acet 5/325 mg [[place] 5-325 mg] 1 tab PO Q6HR PRN 2 Days #10 tablet PRN Reason: Severe Pain Lidocaine Patch [Lidoderm 5% patch] 1 each TP DAILY #3 adh..patch Home Medications: Amlodipine Besylate 10 mg PO DAILY 09/03/17 [History] Aspirin [Adult Aspirin] 81 mg PO DAILY 09/03/17 [History] Baclofen [Lioresal] 10 mg PO TID 09/03/17 [History] Enalapril Maleate [Vasotec] 10 mg PO BID 09/03/17 [History] Furosemide [Lasix] 20 mg PO BID 09/03/17 [History] Ipratropium/Albuterol Sulfate [Combivent Respimat Inhal [place]] 1 puff PO QID PRN 09/03/17 [History] Multivit-Min/FA/Lycopen/Lutein [A Thru Z Select Multivit Tab] 1 tab PO DAILY [History] Potassium Chloride [K-Tab ER] 40 meq PO QID 09/03/17 [History] Prazosin HCl [Minipress] 5 mg PO TID 09/03/17 [History] Ranitidine HCl [Acid Whiskey Filterer] 150 mg PO BID 09/03/17 [History] Simvastatin [Zocor] 20 mg PO HS 09/03/17 [History] traZODone [TraZODone] 50 mg PO HS 09/03/17 [History] HYDROcodone/Acet 5/325 mg [[place] 5-325 mg] 1 tab PO Q6HR PRN 2 Days #10 tablet 09/04/17 [Rx] Lidocaine Patch [Lidoderm 5% patch] 1 each TP DAILY #3 adh..patch 09/04/17 [Rx] Allergies/Adverse Reactions: 3 Allergy/AdvReac Type Severity Reaction Status Date / Time Penicillins [PCN] Allergy Rash Verified 09/02/17 15:23 Certification: Further, I certify that my clinical findings support that this patient is homebound (i.e. absences from home require considerable and taxing effort and are for medical reasons or [facility] or infrequently or short duration when for other reasons) because: Homebound Reason: Patient requires assistance of a person or device to safely leave home Attestation: My signature below is to certify that this patient is under my care and that I, or nurse practitioner, or a physician's graduate assistant working with me, has a face-to -face encounter with this patient.
--- NOTE | 2017-09-04 11:19 | Discharge Summary ---
<Donovan Mancini Mary - Last Filed: 09/04/17 14:44> - NOTES TO OUTPATIENT PROVIDER Notes to Outpatient Provider: Pt with non-radiating back pain. Findings on MRI with buldging disc and lateral recess stenosis and foraminal stenosis. [facility]. Date of Encounter: 09/04/17 Time of Encounter: 11:14 - Discharge Diagnosis (1) Foraminal stenosis due to intervertebral disc disease Priority: Primary Status: Acute Assessment and Plan: Back pain with difficulty ambulating on presentation - seen in ED and then returned with continued back pain despite [place] and lidocaine patches Non-radiating pain and no alarm symptoms Pain is improving some. Ambulated with crutches at baseline MRI with: - Moderate central and right central disc extrusion at L5-L6, with severe right lateral recess stenosis, and right neural foraminal stenosis. - Moderate to severe left lateral recess stenosis. [id number] spinal canal stenosis. - Additional multilevel degenerative changes of the lumbar spine as detailed above. Discussed case with Dr. Guy who recommending having the patient be seen [facility] the [facility] tomorrow morning for consideration of therapeutic injections Continue pain control and baclofen Plan for discharge and close follow-up. Continue home health for PT/OT. (2) Back pain Priority: Secondary Status: Acute Assessment and Plan: as above Qualifiers: Back pain location: low back pain Chronicity: acute Back pain laterality : right Sciatica presence: without sciatica Qualified Code(s): M54.5 - Low back pain (3) Cerebral palsy Priority: Secondary Status: Chronic Qualifiers: Cerebral palsy type: unspecified type Qualified Code(s): G80.9 - Cerebral palsy, unspecified (4) COPD (chronic obstructive pulmonary disease) Priority: Secondary Status: Chronic Qualifiers: COPD type: unspecified COPD Qualified Code(s): J44.9 - Chronic obstructive pulmonary disease, unspecified (5) MINA on CPAP Priority: Secondary Status: Chronic Hospital course: Mr. Ca is a 62 year old male with back pain. Pain has been improving. No alarming symptoms. Antibiotics started for concern of UTI, but then stopped as this is less likely. MRI with buldging disc, lateral recess stenosis, and foraminal stenosis. Offered rehab for physical therpay, but the patient refused ECF and would rather go home with home health. Discussed with Dr. Guy who recommended continue pain control and close f[facility]u [facility] tomorrow. He has home PT/OT set-up already. Will continue pain control medications and recommend close follow-up tomorrow. Discharge discussed with: patient - Time Spent with Patient Total time spent providing and/or coordinating discharge services: - Discharge Medications Prescriptions: HYDROcodone/Acet 5/325 mg [[place] 5-325 mg] 1 tab PO Q6HR PRN 2 Days #10 tablet PRN Reason: Severe Pain Lidocaine Patch [Lidoderm 5% patch] 1 each TP DAILY #3 adh..patch Lidocaine TOPICAL Soln [Xylocaine] 30 ml TP ONCE #1 bottle Home Medications: Amlodipine Besylate 10 mg PO DAILY 09/03/17 [History] Aspirin [Adult Aspirin] 81 mg PO DAILY 09/03/17 [History] Baclofen [Lioresal] 10 mg PO TID 09/03/17 [History] Enalapril Maleate [Vasotec] 10 mg PO BID 09/03/17 [History] Furosemide [Lasix] 20 mg PO BID 09/03/17 [History] Ipratropium/Albuterol Sulfate [Combivent Respimat Inhal [place]] 1 puff PO QID PRN 09/03/17 [History] Multivit-Min/FA/Lycopen/Lutein [A Thru Z Select Multivit Tab] 1 tab PO DAILY [History] Potassium Chloride [K-Tab ER] 40 meq PO QID 09/03/17 [History] Prazosin HCl [Minipress] 5 mg PO TID 09/03/17 [History] Ranitidine HCl [Acid Commission Associate] 150 mg PO BID 09/03/17 [History] Simvastatin [Zocor] 20 mg PO HS 09/03/17 [History] traZODone [TraZODone] 50 mg PO HS 09/03/17 [History] HYDROcodone/Acet 5/325 mg [[place] 5-325 mg] 1 tab PO Q6HR PRN 2 Days #10 tablet 09/04/17 [Rx] Lidocaine Patch [Lidoderm 5% patch] 1 each TP DAILY #3 adh..patch 09/04/17 [Rx] Lidocaine TOPICAL Soln [Xylocaine] 30 ml TP ONCE #1 bottle 09/04/17 [Rx] Allergies/Adverse Reactions: 3 Allergy/AdvReac Type Severity Reaction Status Date / Time Penicillins [PCN] Allergy Rash Verified 09/02/17 15:23 Date of admission: 09/02/17 18:37 Primary care physician: Reg Rudd MD Consults: 09/02/17 21:00 Consult for Pharmacy Education [CONS] Stat Reason for Consult: Please verify home medications. Notify MD with this is completed. Thanks. Call Completed: No 09/02/17 21:10 Consult to Occupational Therapy [CONS] Routine Comment: Evaluate, develop and implement POC Reason for Consult: weakness, back pain Does patient have active BEDREST order?: No Is patient medically & hemodynamically stable?: Yes Patient assessed for mobility or mobilized this visit?: No Consult to Physical Therapy [CONS] Routine Comment: Evaluate, develop and implement POC Reason for Consult: weakness, back pain Does patient have active BEDREST order?: No Is patient medically & hemodynamically stable?: Yes Patient assessed for mobility or mobilized this visit?: No 09/02/17 21:11 Consult to Cattle Dipper [CONS] Routine Reason for SW Consult: [facility] patient 09/04/17 09:36 Consult to Nurse Navigator [CONS] Routine Comment: COPD Discharging clinician: Donovan Mancini Anticipated date of discharge: 09/04/17 - Constitutional Vitals: Temp Pulse Resp BP Pulse Ox 98.1 F 67 18 142/89 93 09/04/17 07:04 09/04/17 07:04 09/04/17 10:49 09/04/17 07:04 09/04/17 10:49 General appearance: Present: cooperative, morbidly obese, pleasant, answers questions appropriately - Head Head exam: Present: atraumatic, normocephalic - Respiratory Respiratory exam: Present: CTAB. Absent: accessory muscle use, rales, rhonchi, wheezes - Cardiovascular Cardiovascular exam: Present: RRR, +S1, +S2. Absent: diastolic murmur, systolic murmur - GI/Abdominal GI/Abdominal exam: Present: normal bowel sounds, soft, no peritoneal signs. Absent: distended, tenderness - Extremities Exam Extremities exam: Present: warm, radial pulses palpable and symmetrical. Absent : pedal edema - Neurological Exam Neurological exam: Present: CN II-XII intact, oriented X3, no focal deficits. Absent: facial droop, speech deficit - Skin Skin exam: Present: dry, intact - Patient Status Disposition: Home Health Service Condition: Good Functional capacity at discharge: uses cane/walker Overall status at discharge: patient is progressing back to baseline - Discharge Instructions Instructions: Hydrocodone/Acetaminophen (By mouth), Lidocaine (On the skin), Urinary Tract Infection in Men (DC), Low Back Strain (DC) Follow Up With: Reg Rudd MD [Primary Care Provider] - 09/14/17 4:30 pm Reji Baker DO [Partnered Physician] - 09/05/17 7:10 am Additional Instructions: Walk carefully using your crutches Use lidocaine patch for relief You may use baclofen and tylenol for pain You may use [place] for severe pain Follow the recommendations of physical therapy [facility] with [facility] morning - Diet and Activity Activity: as per physical therapy Diet: advance to your usual diet <Kunal Dhaliwal - Last Filed: 09/04/17 15:29> Date of Encounter: 09/04/17 - Discharge Diagnosis (1) Lumbar strain Status: Acute Qualifiers: Encounter type: subsequent encounter Qualified Code(s): S39.012D - Strain of muscle, fascia and tendon of lower back, subsequent encounter (2) Ambulatory dysfunction Status: Chronic (3) Cerebral palsy Status: Chronic Qualifiers: Cerebral palsy type: unspecified type Qualified Code(s): G80.9 - Cerebral palsy, unspecified (4) DVT prophylaxis Status: Acute (5) GERD (gastroesophageal reflux disease) Status: Chronic Qualifiers: Esophagitis presence: without esophagitis Qualified Code(s): K21.9 - Gastro -esophageal reflux disease without esophagitis (6) Morbid obesity with BMI of 40.0-44.9, adult Status: Chronic (7) COPD (chronic obstructive pulmonary disease) Status: Chronic Qualifiers: COPD type: unspecified COPD Qualified Code(s): J44.9 - Chronic obstructive pulmonary disease, unspecified (8) MINA on CPAP Status: Chronic Hospital course: Mr. Ca is a 62 year old male - Time Spent with Patient Total time spent providing and/or coordinating discharge services: Date of admission: 09/02/17 18:37 Primary care physician: Reg Rudd MD Consults: 09/02/17 21:00 Consult for Pharmacy Education [CONS] Stat Reason for Consult: Please verify home medications. Notify MD with this is completed. Thanks. Call Completed: No 09/02/17 21:10 Consult to Occupational Therapy [CONS] Routine Comment: Evaluate, develop and implement POC Reason for Consult: weakness, back pain Does patient have active BEDREST order?: No Is patient medically & hemodynamically stable?: Yes Patient assessed for mobility or mobilized this visit?: No Consult to Physical Therapy [CONS] Routine Comment: Evaluate, develop and implement POC Reason for Consult: weakness, back pain Does patient have active BEDREST order?: No Is patient medically & hemodynamically stable?: Yes Patient assessed for mobility or mobilized this visit?: No 09/02/17 21:11 Consult to Cattle Dipper [CONS] Routine Reason for SW Consult: [facility] patient 09/04/17 09:36 Consult to Nurse Navigator [CONS] Routine Comment: COPD - Constitutional Vitals: Temp Pulse Resp BP Pulse Ox 98.1 F 100 18 131/70 92 09/04/17 11:34 09/04/17 11:34 09/04/17 11:34 09/04/17 11:34 09/04/17 11:34 - Attending Attestation Patient was seen and examined. I agree with the discharge summary as dictated above by the resident physician. Discharge plans and recommendations were made under my direct supervision.
[2017-09-04 11:35] VITALS: BP 131/70
== END 2017-09-04 14:49 | disposition home health service (06) ==
LOC: EMEROO 14:59 → 3BNU 14:59
PROVIDERS: ADMIT Internal Medicine; ATTEND Internal Medicine

== ENCOUNTER 2019-04-01 18:53 | Inpatient (IN) ==
[2019-04-01] MEDS ORDERED: methylPREDNISolone 125 MG/2 ML VIAL IVP ONE (19:08)
[2019-04-01] MEDS ORDERED: *HR* Heparin 5,000 UNIT/ML VIAL IVP PRN ×2 (19:08)
[2019-04-01] MEDS ORDERED: *HR* Heparin 5,000 UNIT/ML VIAL IVP ONE (19:08)
[2019-04-01] MEDS ORDERED: Ipratropium/Albuterol Neb 3 ML IH ONE (19:08)
[2019-04-01] MEDS ORDERED: Heparin 25,000 UNIT/250 ML D5W 25,000 UNIT/250 ML IV.SOLN IVC SCH (19:15)
[2019-04-01 21:10] LABS: Basophils # 0.1 K/mcL (0.0-0.2); Basophils % 0.6 %; Eosinophils # 0.3 K/mcL (0.0-0.6); Eosinophils % 3.5 %; Hematocrit 45.4 % (37.5-50.1); Hemoglobin 14.7 g/dL (12.9-16.9); Immature Granulocytes % 0.2 % (0-4); Lymphocytes # 2.1 K/mcL (0.6-4.6); Lymphocytes % 24.8 %; Mean Corpuscular HGB Conc 32.4 g/dL (31.6-35.5); Mean Corpuscular Hemoglobin 28.4 pg (28.0-33.3); Mean Corpuscular Volume 87.8 fL (83.0-100.0); Mean Platelet Volume 10.8 fL (9.4-12.4); Monocytes # 0.7 K/mcL (0.0-1.3); Monocytes % 7.7 %; Neutrophils # 5.4 K/mcL (1.6-8.9); Platelet Count 238 K/mcL (140-400); Red Blood Count 5.17 M/mcL (4.19-5.50); Red Cell Distribution Width 13.2 % (11.5-14.5); Segmented Neutrophils % 63.2 %; White Blood Count 8.6 K/mcL (4.3-11.1)
[2019-04-01 21:13] LABS: Heparin anti-factor XA UFH < 0.04 IU/mL (0.30-0.70); INR 1.1; Prothrombin Time 12.1 Seconds (9.4-12.1)
[2019-04-01 21:16] LABS: Activated Partial Thrombo Time 34.1 Seconds (26.0-36.0)
[2019-04-01 21:32] LABS: BUN/Creatinine Ratio 17 (6-26); Blood Urea Nitrogen 13 mg/dL (8-23); Calcium 8.8 mg/dL (8.6-10.3); Carbon Dioxide 24 mEq/L (23-29); Chloride 109 mEq/L (98-107); Glucose 117 mg/dL (70-105); Osmolality,Calculated 291 (280-300); Potassium 3.4 mEq/L (3.5-5.1); Sodium 140 mEq/L (136-145); Troponin I < 0.03 ng/mL (< 0.04); eGFR For African Americans > 60 (> 60); eGFR For Non-African Americans > 60 (> 60)
[2019-04-02] MEDS ORDERED: Acetaminophen 325 MG TABLET PO PRN (02:27)
[2019-04-02] MEDS ORDERED: Naloxone 0.4 MG/ML INJ IVP PRN (02:27)
[2019-04-02] MEDS ORDERED: GI Cocktail 40 ML EACH PO ONE (03:21)
[2019-04-02] MEDS ORDERED: Pantoprazole 40 MG VIAL IVP ONE (03:22)
[2019-04-02] MEDS ORDERED: Ipratropium/Albuterol Neb 3 ML IH PRN ×2 (03:24→08:46)
[2019-04-02 03:53] LABS: Basophils % 0.1 %; Eosinophils % 0.1 %; Hematocrit 43.7 % (37.5-50.1); Hemoglobin 14.6 g/dL (12.9-16.9); Immature Granulocytes % 0.4 % (0-4); Lymphocytes # 0.5 K/mcL (0.6-4.6); Mean Corpuscular HGB Conc 33.4 g/dL (31.6-35.5); Mean Corpuscular Hemoglobin 29.3 pg (28.0-33.3); Mean Corpuscular Volume 87.6 fL (83.0-100.0); Mean Platelet Volume 10.6 fL (9.4-12.4); Monocytes # 0.1 K/mcL (0.0-1.3); Monocytes % 0.6 %; Neutrophils # 7.1 K/mcL (1.6-8.9); Platelet Count 263 K/mcL (140-400); Red Blood Count 4.99 M/mcL (4.19-5.50); Red Cell Distribution Width 13.2 % (11.5-14.5); Segmented Neutrophils % 91.8 %; White Blood Count 7.8 K/mcL (4.3-11.1)
[2019-04-02 04:13] LABS: BUN/Creatinine Ratio 18 (6-26); Blood Urea Nitrogen 13 mg/dL (8-23); Calcium 8.6 mg/dL (8.6-10.3); Carbon Dioxide 22 mEq/L (23-29); Chloride 109 mEq/L (98-107); Glucose 175 mg/dL (70-105); Magnesium 2.1 mg/dL (1.6-2.6); Osmolality,Calculated 292 (280-300); Potassium 3.6 mEq/L (3.5-5.1); Sodium 139 mEq/L (136-145); eGFR For African Americans > 60 (> 60); eGFR For Non-African Americans > 60 (> 60)
[2019-04-02] MEDS ORDERED: *HR* Labetalol 20 MG/4 ML SYRINGE IVP ONE (06:06)
[2019-04-02 06:28] LABS: Thyroid Stimulating Hormone 0.894 mcIU/mL (0.340-5.600)
[2019-04-02] MEDS: Multivit/Ca/Min/Fe/FA 1 TAB TABLET PO SCH (08:51)
[2019-04-02] MEDS: Aspirin Enteric Coated 81 MG Tablet PO SCH (08:52)
[2019-04-02] MEDS: amLODIPine 5 MG TABLET PO SCH (08:52)
[2019-04-02] MEDS: Furosemide 20 MG TABLET PO SCH ×2 (08:52→15:47)
[2019-04-02] MEDS: Latanoprost 2.5 ML BOTTLE BOTH EYES SCH (08:52)
[2019-04-02] MEDS: Dorzolamide OPTH 10 ML BOTTLE RIGHT EYE SCH ×2 (08:52→21:09)
[2019-04-02] MEDS: Baclofen 10 MG TABLET PO SCH ×3 (08:57→21:06)
[2019-04-02] MEDS: Ipratropium/Albuterol Neb 3 ML IH SCH ×4 (10:49→20:06)
[2019-04-02 12:25] LABS: Adenovirus Not Detected (Not Detect); Bordetella Pertussis Not Detected (Not Detect); Chlamydophila pneumoniae Not Detected (Not Detect); Coronavirus 229E Not Detected (Not Detect); Coronavirus HKU1 Not Detected (Not Detect); Coronavirus NL63 Not Detected (Not Detect); Coronavirus OC43 Not Detected (Not Detect); Human Metapneumovirus Not Detected (Not Detect); Human Rhinovirus/Enterovirus Not Detected (Not Detect); Influenza A Subtype 2009 H1 Not Detected (Not Detect); Influenza B Not Detected (Not Detect); Mycoplasma pneumoniae Not Detected (Not Detect); Parainfluenza Virus 1 Not Detected (Not Detect); Parainfluenza Virus 2 Not Detected (Not Detect); Parainfluenza Virus 3 Not Detected (Not Detect); Parainfluenza Virus 4 Not Detected (Not Detect); Respiratory Syncytial Virus Not Detected (Not Detect)
[2019-04-02] MEDS ORDERED: Perflutren Lipid Microsphere 1.3 ML in 0.9 % Sodium Chloride 8.7 ML IVP ONE (16:02)
[2019-04-02] MEDS: predniSONE 20 MG TABLET PO SCH (17:08)
[2019-04-02] MEDS ORDERED: NON-FORMULARY MEDICATION 1 EACH EACH (Enalapril Maleate [Vasotec] 10 MG) PO SCH (21:00)
[2019-04-02] MEDS: traZODone 50 MG TABLET PO SCH (21:06)
[2019-04-02] MEDS: *HR* Heparin 5,000 UNIT/ML VIAL SQ SCH (21:07)
[2019-04-03] MEDS: Ipratropium/Albuterol Neb 3 ML IH SCH ×4 (04:09→21:37)
[2019-04-03] MEDS: *HR* Heparin 5,000 UNIT/ML VIAL SQ SCH ×3 (06:24→20:43)
[2019-04-03] MEDS: Latanoprost 2.5 ML BOTTLE BOTH EYES SCH (08:30)
[2019-04-03] MEDS: Baclofen 10 MG TABLET PO SCH ×3 (08:30→20:44)
[2019-04-03] MEDS: Multivit/Ca/Min/Fe/FA 1 TAB TABLET PO SCH (08:30)
[2019-04-03] MEDS: Furosemide 20 MG TABLET PO SCH ×2 (08:30→16:20)
[2019-04-03] MEDS: Aspirin Enteric Coated 81 MG Tablet PO SCH (08:30)
[2019-04-03] MEDS: amLODIPine 5 MG TABLET PO SCH (08:30)
[2019-04-03] MEDS: predniSONE 20 MG TABLET PO SCH (08:30)
[2019-04-03] MEDS: Dorzolamide OPTH 10 ML BOTTLE RIGHT EYE SCH ×2 (08:31→20:44)
[2019-04-03] MEDS ORDERED: NON-FORMULARY MEDICATION 1 EACH EACH (Amlodipine Besylate 10 MG) PO SCH (09:00)
[2019-04-03] MEDS: Budesonide/Formoterol 160/4.5 1 PUFF INH IH SCH ×2 (11:30→21:36)
[2019-04-03] MEDS: traZODone 50 MG TABLET PO SCH (20:44)
[2019-04-04] MEDS: Ipratropium/Albuterol Neb 3 ML IH SCH ×4 (03:38→21:28)
[2019-04-04] MEDS: *HR* Heparin 5,000 UNIT/ML VIAL SQ SCH ×3 (05:56→20:24)
[2019-04-04] MEDS: Multivit/Ca/Min/Fe/FA 1 TAB TABLET PO SCH (09:03)
[2019-04-04] MEDS: Aspirin Enteric Coated 81 MG Tablet PO SCH (09:03)
[2019-04-04] MEDS: predniSONE 20 MG TABLET PO SCH (09:04)
[2019-04-04] MEDS: Baclofen 10 MG TABLET PO SCH ×3 (09:05→20:24)
[2019-04-04] MEDS: amLODIPine 5 MG TABLET PO SCH (09:05)
[2019-04-04] MEDS: Furosemide 20 MG TABLET PO SCH ×2 (09:05→16:36)
[2019-04-04] MEDS: Latanoprost 2.5 ML BOTTLE BOTH EYES SCH (09:06)
[2019-04-04] MEDS: Dorzolamide OPTH 10 ML BOTTLE RIGHT EYE SCH ×2 (09:06→20:25)
[2019-04-04] MEDS: Budesonide/Formoterol 160/4.5 1 PUFF INH IH SCH ×2 (09:49→21:28)
[2019-04-04] MEDS: traZODone 50 MG TABLET PO SCH (20:24)
[2019-04-05] MEDS: Ipratropium/Albuterol Neb 3 ML IH SCH (03:25)
[2019-04-05] MEDS: *HR* Heparin 5,000 UNIT/ML VIAL SQ SCH (05:44)
[2019-04-05 07:50] VITALS: BP 142/83
[2019-04-05] MEDS: Furosemide 20 MG TABLET PO SCH (08:13)
[2019-04-05] MEDS: Baclofen 10 MG TABLET PO SCH (08:13)
[2019-04-05] MEDS: Aspirin Enteric Coated 81 MG Tablet PO SCH (08:13)
[2019-04-05] MEDS: Dorzolamide OPTH 10 ML BOTTLE RIGHT EYE SCH (08:14)
[2019-04-05] MEDS: Latanoprost 2.5 ML BOTTLE BOTH EYES SCH (08:14)
[2019-04-05] MEDS: predniSONE 20 MG TABLET PO SCH (08:14)
[2019-04-05] MEDS: amLODIPine 5 MG TABLET PO SCH (08:14)
[2019-04-05] MEDS: Multivit/Ca/Min/Fe/FA 1 TAB TABLET PO SCH (08:14)
== END 2019-04-05 09:24 | DRG 191 ==
LOC: SUATTDRO → EMEROOARM 18:53 → 2ANU 18:53 → SUATTDRO 22:48 → 2ANU 04-02 00:16
PROVIDERS: ADMIT Pharmacist; ATTEND Internal Medicine

== ENCOUNTER 2020-02-15 13:47 | Inpatient (IN) ==
[2020-02-15 15:04] LABS: Basophils # 0.1 K/mcL (0.0-0.2); Basophils % 0.7 %; Eosinophils # 0.4 K/mcL (0.0-0.6); Eosinophils % 5.8 %; Hematocrit 38.4 % (37.5-50.1); Hemoglobin 12.5 g/dL (12.9-16.9); Immature Granulocytes % 0.3 % (0-4); Lymphocytes # 1.7 K/mcL (0.6-4.6); Lymphocytes % 21.7 %; Mean Corpuscular HGB Conc 32.6 g/dL (31.6-35.5); Mean Corpuscular Hemoglobin 28.3 pg (28.0-33.3); Mean Corpuscular Volume 87.1 fL (83.0-100.0); Mean Platelet Volume 10.4 fL (9.4-12.4); Monocytes # 0.9 K/mcL (0.0-1.3); Monocytes % 11.6 %; Neutrophils # 4.6 K/mcL (1.6-8.9); Platelet Count 284 K/mcL (140-400); Red Blood Count 4.41 M/mcL (4.19-5.50); Red Cell Distribution Width 13.1 % (11.5-14.5); Segmented Neutrophils % 59.9 %; White Blood Count 7.6 K/mcL (4.3-11.1)
[2020-02-15 15:27] LABS: BUN/Creatinine Ratio 22 (6-26); Blood Urea Nitrogen 16 mg/dL (8-23); Calcium 8.9 mg/dL (8.6-10.3); Carbon Dioxide 25 mEq/L (23-29); Chloride 108 mEq/L (98-107); Glucose 107 mg/dL (70-105); Osmolality,Calculated 292 (280-300); Potassium 3.6 mEq/L (3.5-5.1); Sodium 140 mEq/L (136-145); eGFR For African Americans > 60 (> 60); eGFR For Non-African Americans > 60 (> 60)
[2020-02-15] MEDS ORDERED: Acetaminophen 325 MG TABLET PO PRN (16:48)
[2020-02-15] MEDS ORDERED: *HR* HYDROcodone/Acet 5/325 mg TABLET PO PRN (16:48)
[2020-02-15] MEDS ORDERED: Naloxone 0.4 MG/ML INJ IVP PRN (16:48)
[2020-02-15] MEDS ORDERED: Albuterol 2.5 MG/3 ML NEBULIZER IH PRN (17:15)
[2020-02-15] MEDS ORDERED: MethylPREDNISolone 40 MG/ML VIAL IVP ONE (17:16)
[2020-02-15] MEDS: 0.9 % Sodium Chloride 1,000 ML IVC SCH (18:01)
[2020-02-15] MEDS: Latanoprost 2.5 ML BOTTLE BOTH EYES SCH (18:26)
[2020-02-15] MEDS: levoFLOXacin 750 MG/150 ML 750 MG/150 ML BAG IVPB SCH (18:26)
[2020-02-15] MEDS: Dorzolamide/Timolol OPTH 10 ML BOTTLE RIGHT EYE SCH (20:27)
[2020-02-15] MEDS: traZODone 50 MG TABLET PO SCH (20:28)
[2020-02-15] MEDS: Baclofen 10 MG TABLET PO SCH (20:28)
[2020-02-15] MEDS: lisinopriL 20 MG TABLET PO SCH (20:28)
[2020-02-16] MEDS ORDERED: Melatonin 3 MG TABLET PO PRN (00:07)
[2020-02-16] MEDS: Vancomycin 1,750 MG/517.5 ML IV.SOLN IVPB SCH ×2 (02:15→14:54)
[2020-02-16 02:57] LABS: Basophils % 0.1 %; Eosinophils % 0.1 %; Hematocrit 38.4 % (37.5-50.1); Hemoglobin 12.5 g/dL (12.9-16.9); Immature Granulocytes % 0.1 % (0-4); Lymphocytes # 0.6 K/mcL (0.6-4.6); Lymphocytes % 7.8 %; Mean Corpuscular HGB Conc 32.6 g/dL (31.6-35.5); Mean Corpuscular Hemoglobin 28.6 pg (28.0-33.3); Mean Corpuscular Volume 87.9 fL (83.0-100.0); Mean Platelet Volume 10.8 fL (9.4-12.4); Monocytes # 0.1 K/mcL (0.0-1.3); Monocytes % 1.4 %; Neutrophils # 6.5 K/mcL (1.6-8.9); Platelet Count 290 K/mcL (140-400); Red Blood Count 4.37 M/mcL (4.19-5.50); Red Cell Distribution Width 12.8 % (11.5-14.5); Segmented Neutrophils % 90.5 %; White Blood Count 7.2 K/mcL (4.3-11.1)
[2020-02-16 03:17] LABS: Alanine Aminotransferase 15 Units/L (7-52); Albumin 3.6 g/dL (3.5-5.7); Albumin/Globulin Ratio 1.2 (1.1-2.2); Alkaline Phosphatase 69 Units/L (34-104); Aspartate Amino Transferase 12 Units/L (13-39); BUN/Creatinine Ratio 21 (6-26); Bilirubin,Total 0.3 mg/dL (0.3-1.0); Blood Urea Nitrogen 15 mg/dL (8-23); Calcium 8.5 mg/dL (8.6-10.3); Carbon Dioxide 22 mEq/L (23-29); Chloride 107 mEq/L (98-107); Glucose 181 mg/dL (70-105); Osmolality,Calculated 291 (280-300); Potassium 3.9 mEq/L (3.5-5.1); Sodium 138 mEq/L (136-145); Total Protein 6.6 g/dL (6.4-8.9); eGFR For African Americans > 60 (> 60); eGFR For Non-African Americans > 60 (> 60)
[2020-02-16] MEDS: Aspirin Enteric Coated 81 MG Tablet PO SCH (07:43)
[2020-02-16] MEDS: predniSONE 20 MG TABLET PO SCH (07:43)
[2020-02-16] MEDS: lisinopriL 20 MG TABLET PO SCH ×2 (07:43→21:05)
[2020-02-16] MEDS: amLODIPine 5 MG TABLET PO SCH (07:43)
[2020-02-16] MEDS: 0.9 % Sodium Chloride 1,000 ML IVC SCH (07:44)
[2020-02-16] MEDS: Baclofen 10 MG TABLET PO SCH ×3 (07:44→21:06)
[2020-02-16] MEDS: Furosemide 20 MG TABLET PO SCH (07:44)
[2020-02-16] MEDS: Dorzolamide/Timolol OPTH 10 ML BOTTLE RIGHT EYE SCH ×2 (07:53→21:05)
[2020-02-16] MEDS: *HR* Heparin 5,000 UNIT/ML VIAL SQ SCH (17:54)
[2020-02-16] MEDS: levoFLOXacin 750 MG/150 ML 750 MG/150 ML BAG IVPB SCH (17:55)
[2020-02-16] MEDS: Latanoprost 2.5 ML BOTTLE BOTH EYES SCH (18:01)
[2020-02-16] MEDS: traZODone 50 MG TABLET PO SCH (21:06)
[2020-02-17 02:28] LABS: Basophils % 0.2 %; Eosinophils % 0.1 %; Hematocrit 35.6 % (37.5-50.1); Hemoglobin 11.2 g/dL (12.9-16.9); Immature Granulocytes % 0.6 % (0-4); Lymphocytes # 0.8 K/mcL (0.6-4.6); Lymphocytes % 9.5 %; Mean Corpuscular HGB Conc 31.5 g/dL (31.6-35.5); Mean Corpuscular Hemoglobin 27.8 pg (28.0-33.3); Mean Corpuscular Volume 88.3 fL (83.0-100.0); Mean Platelet Volume 10.6 fL (9.4-12.4); Monocytes # 0.4 K/mcL (0.0-1.3); Monocytes % 4.8 %; Neutrophils # 7.3 K/mcL (1.6-8.9); Platelet Count 275 K/mcL (140-400); Red Blood Count 4.03 M/mcL (4.19-5.50); Red Cell Distribution Width 12.9 % (11.5-14.5); Segmented Neutrophils % 84.8 %; White Blood Count 8.6 K/mcL (4.3-11.1)
[2020-02-17 02:40] LABS: BUN/Creatinine Ratio 29 (6-26); Blood Urea Nitrogen 20 mg/dL (8-23); Calcium 8.6 mg/dL (8.6-10.3); Carbon Dioxide 24 mEq/L (23-29); Chloride 110 mEq/L (98-107); Glucose 147 mg/dL (70-105); Osmolality,Calculated 293 (280-300); Potassium 3.9 mEq/L (3.5-5.1); Sodium 139 mEq/L (136-145); eGFR For African Americans > 60 (> 60); eGFR For Non-African Americans > 60 (> 60)
[2020-02-17] MEDS ORDERED: Vancomycin 2,000 MG/520 ML IV.SOLN IVPB SCH (04:00)
[2020-02-17] MEDS: *HR* Heparin 5,000 UNIT/ML VIAL SQ SCH (05:16)
[2020-02-17] MEDS: Aspirin Enteric Coated 81 MG Tablet PO SCH (07:39)
[2020-02-17] MEDS: Baclofen 10 MG TABLET PO SCH (07:40)
[2020-02-17] MEDS: Dorzolamide/Timolol OPTH 10 ML BOTTLE RIGHT EYE SCH (07:40)
[2020-02-17] MEDS: lisinopriL 20 MG TABLET PO SCH (07:40)
[2020-02-17] MEDS: predniSONE 20 MG TABLET PO SCH (07:40)
[2020-02-17] MEDS: Furosemide 20 MG TABLET PO SCH (07:40)
[2020-02-17] MEDS: amLODIPine 5 MG TABLET PO SCH (07:44)
[2020-02-17] MEDS: Vancomycin 1,750 MG/517.5 ML IV.SOLN IVPB SCH (10:12)
[2020-02-17 12:11] VITALS: BP 139/80
== END 2020-02-17 15:26 | disposition home or self-care (01) | DRG 603 ==
LOC: EMEROOARM 13:47 → 3ANU 13:47 → SUATTDRO 16:21 → 3ANU 17:09
PROVIDERS: ADMIT Internal Medicine; ATTEND Internal Medicine